=== PATIENT | male | born 1985 | race Caucasian/White ===

== ENCOUNTER 2016-11-29 12:43 | Emergency (ER) | payer OTHER ==
[~2016-11-29] VITALS: Ht 188 cm; Wt 106.6 kg
[~2016-11-29 12:43] MED LIST: CRUTCHES MISCELL; KEFLEX500 MG PO; NAPROSYN500 MG PO; NOHOMEMEDICATIONS
[2016-11-29 13:10] LABS: ABSOLUTE NEUTROPHILS 3.3 thou/uL (1.4-8.2); BASOPHILS 0.7 % (0.0-2.0); EOSINOPHILS 12.7 % (0.0-3.0); HEMOGLOBIN 16.1 gm/dL (14.0-18.0); LYMPHOCYTES 15.2 % (24.0-44.0); MANUAL DIFF NO; MCH 28.2 pg (26.0-34.0); MCHC 33.7 g/dL (28.0-37.0); MCV 83.7 fL (80.0-100.0); MONOCYTES 6.9 % (1.0-8.0); PLATELET COUNT 225 thou/uL (150-400); POLYS 64.5 % (36.0-66.0); RBC 5.73 mil/uL (4.50-6.00); RDW 13.8 % (10.5-14.5); WBC 5.1 thou/uL (4.0-11.0)
[2016-11-29] MEDS ORDERED: ZPAK PO (14:45)
[2016-11-29] MEDS ORDERED: IBUPROFEN 600600 M1 PO (14:45)
[2016-11-29] MEDS ORDERED: NORCO 5-325 TA1 EACH PO (14:46)
[2016-11-29 14:56] VITALS: BP 120/70
== END 2016-11-29 14:56 | disposition home or self-care (01) ==
LOC: ER 12:43
PROVIDERS: Nurse Practitioner
DX: H66.92 Otitis media, unspecified, left ear (principal); Z88.2 Allergy status to sulfonamides; Z88.0 Allergy status to penicillin

== ENCOUNTER 2019-04-22 17:17 | Emergency (ER) | payer OTHER ==
[~2019-04-22] VITALS: Ht 190.5 cm; Wt 59.0 kg
[~2019-04-22 17:17] MED LIST changes: +IBUPROFEN 600600 M1 PO; +NORCO 5-325 TA1 EACH PO; +ZPAK PO
[2019-04-22 17:52] LABS: ABSOLUTE NEUTROPHILS 2.8 thou/uL (1.4-8.2); BASOPHILS 0.7 % (0.0-2.0); HEMATOCRIT 48.2 % (42.0-52.0); HEMOGLOBIN 16.3 gm/dL (14.0-18.0); LYMPHOCYTES 26.3 % (24.0-44.0); MCH 28.2 pg (26.0-34.0); MCHC 33.9 g/dL (28.0-37.0); MCV 83.3 fL (80.0-100.0); MONOCYTES 9.9 % (1.0-8.0); PLATELET COUNT 223 thou/uL (150-400); POLYS 61.1 % (36.0-66.0); RBC 5.79 mil/uL (4.50-6.00); RDW 13.1 % (10.5-14.5); WBC 4.7 thou/uL (4.0-11.0)
[2019-04-22 18:02] LABS: CALCIUM 9.2 mg/dL (8.5-10.1); CREATININE 1.2 mg/dL (0.7-1.3); POTASSIUM 3.6 mmol/L (3.5-5.1)
[2019-04-22 18:08] LABS: ALBUMIN 4.1 g/dL (3.4-5.0); TOTAL BILIRUBIN 0.3 mg/dL (<0.1-1.0); TOTAL PROTEIN 7.6 g/dL (6.4-8.2)
[2019-04-22] MEDS ORDERED: NAPROSYN500 MG PO (19:13)
[2019-04-22 19:26] VITALS: BP 125/85
--- NOTE | 2019-04-24 07:34 | EKG ---
[facility] [place] [address] ELECTROCARDIOGRAM REPORT Name: JODIE MEDINA Room #: DEP [facility]#: [id number] Admission: 04/22/19 Attend Phys: Discharge: 04/22/19 Date of : 87 Report #: [id number] THIS REPORT FOR: cc: NEFTALI - Deidre family physician/PCP NEFTALI - No family physician/PCP Zana Nazario MD [facility] THIS REPORT FOR: //name// [facility] ED Test Date: 2019-04-22 Test Time: 18:05:13 Pat Name: JODIE MEDINA Department: Room: Gender: Supervisor Floor Assembly: [place] : 1985 Requested By: Trent Fonseca Order Number: [id number] MD: Zana Nazario Measurements Intervals [employer] Rate: 66 P: -6 AL: 159 QRS: -2 QRSD: 111 T: 12 QT: 411 QTc: 431 Interpretive Statements Sinus rhythm Normal tracing No previous ECG available for comparison Electronically Signed On 04-24-2019 7:33:36 CDT by Zana Nazario [email or web address] <ELECTRONICALLY SIGNED> By: Zana Nazario MD, [facility] 04/24/19 0733 D: 03/1804 04 Zana Nazario MD, FACC /EPI
== END 2019-04-22 19:26 | disposition still patient (30) ==
LOC: ER 17:17
PROVIDERS: Emergency Medicine
DX: S06.0X0A Concussion without loss of consciousness, initial encounter (principal); R42 Dizziness and giddiness; R06.02 Shortness of breath; W20.8XXA Other cause of strike by thrown, projected or falling object, initial encounter; Y93.89 Activity, other specified; Y92.89 Other specified places as the place of occurrence of the external cause; Y99.8 Other external cause status